=== PATIENT | female | born 1940 | race Caucasian/White ===

== ENCOUNTER → 2016-10-19 | Outpatient (CLI) | payer MEDICARE | END | disposition home or self-care (01) | LOC: RAD.S 14:55 | DX: Z12.31 Encounter for screening mammogram for malignant neoplasm of breast (principal); R92.0 Mammographic microcalcification found on diagnostic imaging of breast ==

== ENCOUNTER 2016-11-19 18:29 | Emergency (ER) | payer MEDICARE ==
--- NOTE | 2016-11-20 05:44 | ER ---
ADMIT: 11/19/2016 RM/LOC: ER [facility] MR#: [id number] [address] [address] CONNIE DANIELSON [address] [place] [address] [place] [address] Emergency Room Report SEX: F AGE: 76 : 1940 DATE: 11/19/2016 The patient is a 76-year-old female with chronic venous stasis insufficiency, anticoagulated, bumped her left galvan a week ago at family's house. Exam remarkable for nontoxic, afebrile female with obvious venous stasis dermatitis. Abrasion left anterior galvan and associated cellulitis. Wound was cleansed, dressed with bacitracin and dressing. Keflex 500 mg q.i.d. x10 days. Rocephin 1 g IM. Follow up wound care this week, and Dr. Chapito Acosta as needed. Dg Azar MD/ miguel ángel JOB #: [id number] CC: Sonu Block MD, Attending Physician Chapito Acosta MD, Family Physician
== END 2016-11-19 19:45 | disposition home or self-care (01) ==
LOC: ER 18:29
DX: S80.812A Abrasion, left lower leg, initial encounter (principal); I87.2 Venous insufficiency (chronic) (peripheral); I10 Essential (primary) hypertension; F41.9 Anxiety disorder, unspecified; Z88.8 Allergy status to other drugs, medicaments and biological substances; X58.XXXA Exposure to other specified factors, initial encounter

== ENCOUNTER 2016-11-24 15:15 | Emergency (ER) | payer MEDICARE ==
--- NOTE | 2016-12-03 13:41 | ER ---
ADMIT: 11/24/2016 RM/LOC: ER [facility] MR#: [id number] [address] CONNIE DANIELSON [address] [place] [address] [place] [address] Emergency Room Report SEX: F AGE: 76 : 1940 DATE: 11/24/2016 ADDENDUM: This patient has a healing wound on her left leg. She was seen by Wound Care and they thought that it looks different since the wounds seem to have opened up. She was also seen in the ER and given an IV antibiotic and put on Keflex. She was supposed to follow up with Dr. Acosta's office today, unable to get in and comes to the ER. On physical exam, she does have a healing wound with chronic venous stasis on the lower legs. The healing wound is on the left galvan area. She does have some redness around it, but is not more tender than what it normally is. Doppler was negative for DVT. Her white count and lactic acid were normal. DIAGNOSIS: Cellulitis on the left leg. I did consult with Dr. Acosta concerning treatment of this patient. Per him, we will add the Bactrim to the Keflex that she is already taking, and she is to follow up with him next week. 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 Please see my T-sheet. ELISE Candelario / Larry Devlin MD / miguel ángel JOB #: [id number] CC: Larry Devlin MD, Attending Physician UNKNOWN, Family Physician
== END 2016-11-24 17:40 | disposition home or self-care (01) ==
LOC: ER 15:15
DX: L03.116 Cellulitis of left lower limb (principal); Z88.6 Allergy status to analgesic agent; Z79.899 Other long term (current) drug therapy